=== PATIENT | female | born 1970 | race Caucasian/White ===

== ENCOUNTER 2018-12-13 15:13 | Observation (INO) | payer OTHER ==
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
[2018-12-13] MEDS ORDERED: Zofran 4 MG/2 ML VIAL IV ONE (15:29)
[2018-12-13] MEDS ORDERED: Zofran 4 MG/2 ML VIAL ONE (15:32)
[2018-12-13] MEDS ORDERED: Sodium Chloride 0.9% 1000 ML 1,000 ML ONE (15:33)
[2018-12-13] MEDS: Sodium Chloride 0.9% 1000 ML 1,000 ML IV SCH (15:39)
[2018-12-13] MEDS ORDERED: NICOTINE PATCH 7MG TD STA (15:58)
[2018-12-13 16:05] LABS: Appearance CLEAR (CLEAR); Bilirubin NEGATIVE (NEGATIVE); Blood NEGATIVE Ery/ul (0-5); Glucose NEGATIVE (NEGATIVE); Ketones NEGATIVE (NEGATIVE); Leukocyte Esterase NEGATIVE (NEGATIVE); Mucus SLIGHT /HPF (NEGATIVE); Nitrite NEGATIVE (NEGATIVE); Protein,Urine Dip NEGATIVE (Negative); Specific Gravity 1.009 (1.005-1.025); Urobilinogen NEGATIVE mg/dL (0-1)
[2018-12-13 16:15] LABS: BASOPHIL % 0.4 % (0.0-0.4); Basophil (Absolute #) 0.03 (0-0.4); Eosinophil (Absolute #) 0.08 (0-0.5); Granulocyte Absolute (ANC) 5.85 (1.4-6.9); Granulocytes % 69.8 % (36.0-66.0); Hematocrit 41.3 % (35-47); Hemoglobin 13.6 gm/dl (12.0-16.0); Lymphocyte (Absolute #) 1.81 (1.0-4.6); Lymphocytes % 21.7 % (24.0-44.0); Mean Cell Volume 97.9 fl (78-100); Mean Corpuscular Hemoglobin 32.2 pg (26-32); Mean Corpuscular Hgb Concent. 32.9 g/dl (32-36); Mean Platelet Volume 9.8 fl (6-9.5); Monocyte (Absolute #) 0.59 (0.0-1.3); Monocytes % 7.1 % (0.0-12.0); Platelet Count 298 K/mm3 (150-450); Red Blood Count 4.22 M/mm3 (4.1-5.4); Red Cell Distribution Width 13.3 % (11.5-14.0); White Blood Count 8.4 K/mm3 (4.0-10.5)
[2018-12-13 16:17] LABS: Amphetamine,Urine NEGATIVE (NEGATIVE); Barbiturate,Urine NEGATIVE (NEGATIVE); Benzodiazepine,Urine NEGATIVE (NEGATIVE); Cocaine,Urine NEGATIVE (NEGATIVE); Methadone,Urine NEGATIVE (NEGATIVE); Opiate,Urine NEGATIVE (NEGATIVE); PCP,Urine NEGATIVE (NEGATIVE); THC,Urine POSITIVE (NEGATIVE)
[2018-12-13 16:27] LABS: ACETAMINOPHEN < 10 ug/ml (10-30); ALBUMIN 3.9 g/dL (3.5-5.0); ALKALINE PHOSPHATASE 105 U/L (38-126); BLOOD UREA NITROGEN 11 mg/dL (7-17); CHLORIDE 109 mmol/L (98-107); Calcium 9.4 mg/dL (8.4-10.2); Carbon Dioxide 25 mmol/L (22-30); Creatinine 1 0.52 mg/dL (0.52-1.04); ETHYL ALCOHOL < 10 mg/dL (0-10); Glucose 95 mg/dL (74-106); Potassium 4.1 mmol/L (3.5-5.1); SALICYLATE < 1.0 mg/dL (2-20); SGOT/AST 16 U/L (14-36); SGPT/ALT 21 U/L (0-35); SODIUM 140 mmol/L (137-145); Total Protein 6.8 g/dL (6.3-8.2)
[2018-12-13] MEDS ORDERED: TYLENOL 325 MG PO ONE (20:28)
[2018-12-13] MEDS ORDERED: TYLENOL 325 MG ONE (20:29)
[2018-12-14] MEDS ORDERED: TYLENOL 325 MG PO PRN (05:00)
[2018-12-14] MEDS: Sodium Chloride 0.9% 1000 ML 1,000 ML IV SCH (05:29)
[2018-12-14 05:31] LABS: BASOPHIL % 0.5 % (0.0-0.4); Basophil (Absolute #) 0.04 (0-0.4); Eosinophil % 1.3 % (0.00-5.0); Granulocyte Absolute (ANC) 4.81 (1.4-6.9); Granulocytes % 60.4 % (36.0-66.0); Hematocrit 41.8 % (35-47); Hemoglobin 13.6 gm/dl (12.0-16.0); Lymphocyte (Absolute #) 2.31 (1.0-4.6); Lymphocytes % 29.1 % (24.0-44.0); Mean Cell Volume 98.6 fl (78-100); Mean Corpuscular Hemoglobin 32.1 pg (26-32); Mean Corpuscular Hgb Concent. 32.5 g/dl (32-36); Mean Platelet Volume 9.7 fl (6-9.5); Monocyte (Absolute #) 0.69 (0.0-1.3); Monocytes % 8.7 % (0.0-12.0); Platelet Count 326 K/mm3 (150-450); Red Blood Count 4.24 M/mm3 (4.1-5.4); Red Cell Distribution Width 13.5 % (11.5-14.0)
[2018-12-14 05:51] LABS: ALBUMIN 4.3 g/dL (3.5-5.0); ALKALINE PHOSPHATASE 98 U/L (38-126); ANION GAP 12.3 MEQ/L (5-15); BLOOD UREA NITROGEN 10 mg/dL (7-17); CHLORIDE 105 mmol/L (98-107); Calcium 9.7 mg/dL (8.4-10.2); Carbon Dioxide 28 mmol/L (22-30); Creatinine 1 0.56 mg/dL (0.52-1.04); Glucose 106 mg/dL (74-106); Potassium 4.7 mmol/L (3.5-5.1); SGOT/AST 16 U/L (14-36); SGPT/ALT 21 U/L (0-35); SODIUM 141 mmol/L (137-145); Total Protein 7.3 g/dL (6.3-8.2)
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
[2018-12-14] MEDS ORDERED: Zestril 10 MG PO SCH (10:00)
[2018-12-14 12:26] VITALS: BP 123/74; PULSE 60; O2SAT 97
== END 2018-12-14 14:31 ==
LOC: ED 15:13 → ICU 23:34
PROVIDERS: ADMIT Internal Medicine; ATTEND Internal Medicine
DX: T42.6X2A Poisoning by other antiepileptic and sedative-hypnotic drugs, intentional self-harm, initial encounter (principal); I10 Essential (primary) hypertension; G47.00 Insomnia, unspecified; R51 Headache
CPT/HCPCS: 36000; 36415; 80053; 80307; 81001; 85025; 87086; 93005; 93268; 94760; 96360; 96361; 96374; 99285; G0378; G0480; G0481; 90791; J2405; A9270-GY